=== PATIENT | female | born 1990 | race Caucasian/White ===

== ENCOUNTER → 2020-09-08 17:26 | Outpatient (CLI) | payer MEDICAID, SELFPAY ==
--- NOTE | 2020-09-08 17:26 | MRI_ITS ---
STUDY: MRI LEFT KNEE REASON FOR EXAM: Female, 29 years old. Left knee pain, 3 prior surgeries. TECHNIQUE: Standardized fat and water weighted pulse sequences were obtained in all 3 orthogonal planes. COMPARISON: X-ray 08/31/2020. FINDINGS: Normal medial meniscus. Normal hyaline cartilage of the medial femorotibial compartment. Normal medial femoral condyle and tibial plateau. Normal medial collateral ligamentous complex (MCL). Normal distal semimembranosus, gracilis and semitendinosus tendons. Normal lateral meniscus. Mild edema in the posterolateral lateral femoral cartilage. Mild marrow edema in the lateral femoral condyle. Normal proximal tibiofibular articulation. Normal lateral collateral (fibular) ligament. Normal popliteus tendon. Normal biceps femoris tendon. Normal anterior cruciate ligament (ACL). Normal posterior cruciate ligament (PCL). Mild medial subluxation of the patella. Normal hyaline cartilage of the patellofemoral compartment. Normal medial and lateral patellar retinaculum. Normal quadriceps tendon. Normal patellar tendon. Normal Hoffa''s fat pad. Trace joint effusion. The soft tissues are unremarkable. The otherwise visualized osseous structures are unremarkable. MRI/Lower Ext Joint Only (Routine) IMPRESSION: 1. Small joint effusion. 2. Mild signal abnormality of the posterolateral femur and overlying cartilage consistent with degenerative change versus mild contusion. 3. Mild medial subluxation of the patella. Electronically Signed: Bonny Mueller MD at 22:21 EDT Tel , Service support ,
== END ==
PROVIDERS: PCP Nurse Practitioner Primary Care; Referring Provider Orthopaedic Surgery; Visit Provider Orthopaedic Surgery
DX: M25.562 Pain in left knee (principal); G89.29 Other chronic pain; M95.8 Other specified acquired deformities of musculoskeletal system
CPT/HCPCS: 73721

== ENCOUNTER 2021-11-19 16:38 | Outpatient (CLI) | payer MEDICAID, SELFPAY ==
--- NOTE | 2021-11-19 16:55 | MRI_ITS ---
STUDY: MRI RIGHT KNEE REASON FOR EXAM: Female, 30 years old. PAIN ALL OVER KNEE WITH PAIN MOSTLY ALONG LATERAL SIDE. NO KNOWN INJURY. PATIENT BELIEVES INJURED FROM OVERUSE WHILE LEFT KNEE WAS INJURED. TECHNIQUE: Standardized fat and water weighted pulse sequences were obtained in all 3 orthogonal planes. COMPARISON: MRI of the right knee dated September 08, 2020 FINDINGS: There is mild attrition of the free edge of the medial meniscus without a demonstrated meniscal tear. There is diffuse, less than 50% thickness articular cartilage loss of the medial femorotibial compartment. Normal medial femoral condyle and tibial plateau. Normal medial collateral ligamentous complex (MCL). Normal distal semimembranosus, gracilis and semitendinosus tendons. Normal lateral meniscus. Normal hyaline cartilage of the lateral femorotibial compartment. Normal lateral femoral condyle and tibial plateau. Normal proximal tibiofibular articulation. Normal lateral collateral (fibular) ligament. Normal popliteus tendon. Normal biceps femoris tendon. Normal anterior cruciate ligament (ACL). Normal posterior cruciate ligament (PCL). Normal congruent patellofemoral articulation. Normal hyaline cartilage of the patellofemoral compartment. Normal medial and lateral patellar retinaculum. Normal quadriceps tendon. Normal patellar tendon. Normal Hoffa''s fat pad. A tiny amount of joint fluid is present possibly physiologic rather than an effusion. No osteochondral defect or bone marrow edema or occult fracture is present. The soft tissues are unremarkable. The otherwise visualized osseous structures are unremarkable. MRI/Lower Ext Joint Only (Routine) IMPRESSION: 1. There is mild attrition of the free edge of the medial meniscus without a demonstrated meniscal tear. Diffuse, less than 50% thickness articular cartilage loss of the medial femorotibial compartment. 2. A tiny amount of joint fluid is present possibly physiologic rather than an effusion. No osteochondral defect or bone marrow edema or occult fracture is present. Electronically Signed: Florin Sheridan MD at 23:37 EST , Service support ,
== END 2021-11-19 23:59 | disposition short-term general hospital (02) ==
PROVIDERS: PCP Nurse Practitioner Primary Care; Visit Provider Orthopaedic Surgery
DX: M25.561 Pain in right knee (principal)
CPT/HCPCS: 73721